=== PATIENT | male | born 1970 | race Two or more races ===

== ENCOUNTER 2024-10-24 18:51 | Emergency (ER) | payer MEDICAID, SELFPAY ==
[2024-10-24 18:52] VITALS: BMI 34.8
[2024-10-24 19:31] VITALS: BP 141/91; PULSE 79; RESP 20; TEMP 36.7; O2SAT 97
--- NOTE | 2024-10-24 20:05 | XR_ITS ---
Examination: Hand, right 3 views Technique: Hand AP, oblique, lateral 3 views Date and time of exam: October 24, 20242013 hours INDICATIONS: Injured hand today, hand pain. FINDINGS: Acute comminuted angulated mildly displaced fracture distal fifth metacarpal No dislocation IMPRESSION: Acute fracture distal fifth metacarpal
--- NOTE | 2024-10-24 20:06 | PD.EDHAND ---
Upper Extremity Injury RME/HPI General Chief Complaint: Hand/Wrist Problems Stated Complaint: POSS FX R) HAND Time Seen by Provider: 10/24/24 19:06 Arrival date/time: 10/24/24 18:51 RME / HPI RME / HPI narrative: [id number] 54-year-old male with no significant past medical history presents to the ED with a complaint of right hand pain, swelling and bruising secondary to an injury he sustained on Friday. Patient states that he was working on a piece of yard equipment when he pulled the string to get it started and accidentally hit the handle of another piece of yard equipment with his right hand. He has some mild numbness to the right small finger. He denies any previous injury. Related Data Previous Rx's ?Medication ?Instructions ?Recorded ibuprofen 600 mg tablet 600 mg PO TID PRN pain #30 tabs 05/03/17 prednisone 20 mg tablet 60 mg (3 x 20 mg) PO QDAY sciatca 05/03/17 #15 tabs diphenhydramine HCl 25 mg tablet 25 mg PO TID PRN allergic reaction 05/20/19 (Benadryl Allergy) #30 tabs omeprazole 20 mg capsule,delayed 20 mg PO QDAY #20 caps 09/11/22 release ibuprofen 600 mg tablet 600 mg PO Q8H PRN pain 7 days #21 10/24/24 tabs Allergies Allergy/AdvReac Type Severity Reaction Status Date / Time Penicillins Allergy Severe HIVES Verified 10/24/24 18:54 morphine AdvReac Intermediate VEINS Verified 10/24/24 18:54 TURNED RED Review of Systems Review of Systems Systems Reviewed: All systems reviewed, normal except as documented Past Medical History Past Medical History CARDIAC: Negative Congestive Heart Failure RESPIRATORY: Negative Chronic Obstructive Pulmonary Disease (COPD) GENITOURINARY: Negative Renal Disease ENDOCRINE: Negative Diabetes Mellitus Type 1 or Diabetes Mellitus Type 2 Social History SMOKING STATUS: Current every day smoker ED Exam Narrative Physical exam: A&O, afebrile and non-toxic appearing 54 year old male , mild acute pain distress due to right hand pain and swelling. Lungs are clear, RRR, Abdomen is non-distended. Right hand exam reveals swelling to the entire metacarpals area with tenderness and decreased ROM to the distal 5th metacarpal and MCP joint area. No tenderness or decreased ROM to the other 4 digits. No tenderness to the proximal, middle, or distal phalynx. Eccymosis noted to the right palm in the areas of the distal 3rd, 4th, 5th distal metacarpals. No pain with ROM or tenderness to palpation of the right wrist. Moves all other extremities well. Course Course Course Narrative: Patient was given Ibuprofen 800mg PO, which he states helped with his pain. XR Right Hand reveals: Acute comminuted angulated mildly displaced fracture distal fifth metacarpal. No dislocation. Patient was placed in an ulnar gutter splint in position of function as well as an arm sling. Quality Measures none Orders Category Date Time Status Splint / Immobilizer STAT Care 10/24/24 21:27 Active XR hand comp RT min 3V Stat Exams 10/24/24 20:05 Completed Ibuprofen Tab [Motrin Tab] Med 10/24/24 20:05 Discontinued 800 mg PO X1 ONE Vital Signs Vital signs: Vital Signs Temperature 98.1 F 10/24/24 19:31 Pulse Rate 79 10/24/24 19:31 Respiratory Rate 20 10/24/24 19:31 Blood Pressure 141/91 H 10/24/24 19:31 Pulse Oximetry (%) 97 10/24/24 19:31 Oxygen Delivery Method Room Air 10/24/24 19:31 Extremity Injury MDM Narrative MDM Narrative:: Symptoms, exam and diagnostic studies are consistent with: Right Distal 5th Metacarpal (Boxer's) Fracture. Patient was discharged home in stable condition. There is no orthopedic coverage today therefore patient was advised to follow-up at either [facility] or [facility] for follow-up and referral to an clinical reimbursement specialist. Patient/family advised to follow-up with their PCP in 24-48 hours. Encouraged to return to the ED for any new or worsening symptoms. Patient data External records reviewed:: None Clinical information provided by:: patient Social determinants that could affect healthcare access:: none Patient has the following chronic illnesses:: N/A How is presenting disease/condition affected by chronic disease/condition?: no chronic disease Evaluation data The following diagnostics were reviewed and interpreted by me:: radiology exam(s) Lab and/or radiology exams considered but not ordered:: N/A Interpretation Summary: As noted above Medications / Prescriptions Medications or Prescriptions considered but not ordered:: N/A Medication administrations:: Medication Administration History Discontinued Medications Ibuprofen (Ibuprofen Tab 400 Mg Tablet) 800 mg PO X1 ONE Stop: 10/24/24 20:06 Last Admin: 10/24/24 20:36 Dose: 800 mg Documented By: EF As noted above Consultations Consultation(s) initiated? (list below): No Diagnosis Upper Extremity Injury Differential Diagnosis: sprain and strain of wrist, fracture of wrist, Colles' fracture, fracture of hand and other (Fifth distal metacarpal/boxer's fracture) Most likely diagnosis given after review of the tests above:: Fifth distal metacarpal/boxer's fracture Admission Indicated Admission indicated?: not indicated Explain why admission is indicated or not indicated:: Patient is stable for discharge Admission Request Was there a request for admission?: No Admission Attestation Admission request attestation: N/A Disposition Plan Disposition Plan: Discharge Discharge Attestation Discharge Attestation: The patient and all family members were given an opportunity to ask questions and understood the discharge instructions. Discharge instructions specifically effects, indications for sooner follow up or return to the emergency department, and the expected course of current diagnosis. Patient condition: Stable Discharge Plan Plan Patient Disposition: HOME (Self Care) Discharge Disposition comment: Stable and improved Prescriptions/Referrals Prescriptions/Med Rec: New ibuprofen 600 mg tablet 600 mg PO Q8H PRN (Reason: pain) 7 Days Qty: 21 0RF No Action prednisone 20 mg tablet 60 mg PO QDAY Qty: 15 0RF Rx Instructions: administer with food or milk ibuprofen 600 mg tablet 600 mg PO TID PRN (Reason: pain) Qty: 30 0RF diphenhydramine HCl [Benadryl Allergy] 25 mg tablet 25 mg PO TID PRN (Reason: allergic reaction) Qty: 30 0RF omeprazole 20 mg capsule,delayed release(DR/EC) 20 mg PO QDAY Qty: 20 0RF Referrals: No Primary/Family,Physician [Primary Care Provider] - In 1 week Problem List Clinical Impression: Closed boxer's fracture Patient/Caregiver Discharge Instructions Education Materials: ED Closed Hand Fracture (Adult) Additional Instructions: Keep the splint in place. Ice and elevate to help eliminate pain and swelling. Use the ibuprofen as needed for pain control. Do not take more than the recommended dose. Unfortunately we do not have an orthopedic surgeon corrosion technician today. Establish care at either [facility] or [facility] for referral to an clinical reimbursement specialist. You may need surgery on this fracture. Follow-up with your primary care physician in 24 to 48 hours. Return to the ED for any new or worsening symptoms. Print Language: Citizen Of [place] Stand Alone Forms: Maci Award Info., Patient Portal Info Letter PA/LEAK GANG SUPERVISOR Supervising Physician PA/LEAK GANG SUPERVISOR Supervising Physician: Dr Briones
[2024-10-24] MEDS: IBUPROFEN TAB 400 MG TABLET 800 MG PO (20:36)
[2024-10-24 22:28] VITALS: BP 134/86; PULSE 69; RESP 18; TEMP 36.5; O2SAT 98
== END 2024-10-24 22:29 | disposition home or self-care (01) ==
PROVIDERS: Emergency Provider Emergency Medicine
DX: S62.366A Nondisplaced fracture of neck of fifth metacarpal bone, right hand, initial encounter for closed fracture (principal); W22.8XXA Striking against or struck by other objects, initial encounter; Y93.89 Activity, other specified
CPT/HCPCS: 29125; 73130; 99283; A9270

== ENCOUNTER 2025-01-22 19:38 | Emergency (ER) | payer MEDICAID, SELFPAY ==
[2025-01-22 19:38] VITALS: BMI 34.8
--- NOTE | 2025-01-22 20:06 | XR_ITS ---
Examination: CT abdomen and pelvis without contrast. Coronal 3-D reconstructions. Sagittal 2-D reconstructions. Date and time of exam: .2032 hours, comparison April 22, 2024 INDICATIONS: Left lower abdominal pain and hematuria today CTDI: vol (mGy): 10.3 DLP: (mGycm): 666 Technique: Axial images of the abdomen have been obtained, 3 mm slice thickness Intravenous contrast material has not been administered. Low dose protocols were performed. One or more of the following dose reduction techniques were used; automated exposure control, adjustment of the mA and/or KV according to patient size, use of iterative reconstruction technique. Findings: Multiple liver cysts Cholelithiasis, gallbladder wall does not appear thickened No pancreatic or adrenal mass 2 mm left renal calculus 3 mm 1 mm left renal calculus Mild left hydronephrosis secondary to 5 mm distal left ureteral calculus No bowel obstruction No pericecal inflammatory change Colonic diverticulosis, axial image 199 suspicious for mild acute diverticulitis, no abscess Urinary bladder wall shows significant thickening IMPRESSION: Left renal calculi Mild left hydronephrosis secondary to 5 mm distal left ureteral calculus Mild left diverticulitis, no diverticular abscess
[2025-01-22 20:07] VITALS: BP 153/89; PULSE 60; RESP 20; TEMP 36.4; O2SAT 96
--- NOTE | 2025-01-22 20:07 | EDNOTE_ITS ---
ED Male Genitalurinary RME/HPI General Chief complaint: Urogenital-Male Stated complaint: URINATING BLOOD Time Seen by Provider: 01/22/25 19:43 Arrival date/time: 01/22/25 19:38 54-year-old male patient came in for evaluation regarding left flank pain. Onset of symptoms about 1 hour prior to ER visit, patient woke up with sudden onset of left flank pain radiating to the left lower abdomen associate with blood-tinged urine. Patient pain is described as sharp pain severity 10 out of 10. No vomiting noted denies any other complaints no fever noted. Related Data Previous Rx's ?Medication ?Instructions ?Recorded ibuprofen 600 mg tablet 600 mg PO TID PRN pain #30 t abs 05/03/17 prednisone 20 mg tablet 60 mg (3 x 20 mg) PO QDAY sc iatca 05/03/17 #15 tabs diphenhydramine HCl 25 mg tablet 25 mg PO TID PRN clara rgic reaction 05/20/19 (Benadryl Allergy) #30 tabs omeprazole 20 mg capsule,delayed 20 mg PO QDAY #20 cap s 09/11/22 release ibuprofen 800 mg tablet 800 mg PO Q8H PRN pain #30 t abs 01/22/25 ondansetron HCl 4 mg tablet 4 mg PO Q8H PRN nausea and 01/22/25 vomiting 5 days #20 tabs tamsulosin 0.4 mg capsule (Flomax) 0.4 mg PO QDAY #10 caps 01/22/25 acetaminophen 300 mg-codeine 30 mg 2 tab PO Q8H PRN pa in #20 tabs 01/23/25 tablet ketorolac 10 mg tablet 10 mg PO Q8H PRN pain 5 days #10 01/23/25 tabs ondansetron 4 mg disintegrating 4 mg PO TID PRN nausea and 01/23/25 tablet vomiting 30 days #10 tabs tamsulosin 0.4 mg capsule (Flomax) 0.4 mg PO QDAY 7 da ys #7 caps 01/23/25 Allergies Allergy/AdvReac Type Severity Reaction Status Date / Time Penicillins Allergy Severe HIVES Verified 10/24/24 18:54 morphine AdvReac Intermediate VEINS Verified 10/24/24 18:54 TURNED RED Review of Systems Review of Systems Narrative Review of Systems: Review of system reviewed and within normal limits except mentioned in HPI ED Exam Narrative Physical exam: VITAL SIGNS: Reviewed. GENERAL APPEARANCE: Alert and interactive, follows commands, no acute distress, HEAD AND FACE: Non-traumatic. ENT: PERRL, pink conjunctivitis, eyelid no trauma, Mucous membrane moist. NECK: Supple, nontender, no nuchal rigidity. CHEST: No tenderness, no crepitus, no paradoxical movement, no retractions. LUNGS: Clear, well ventilated, symmetric, no rales, no wheezing, no ronchi, no stridor, good breath sounds bilaterally. HEART: Regular rate, regular rhythm, no murmur, no gallops. ABDOMEN: Soft, positive bowel sounds, nondistended, no guarding, left lower quadrant tenderness, no rebound, no masses, RECTAL: Deferred. GENITAL: Deferred. NEUROLOGICAL: Gross motor function intact sensory function intact, Appropriate for age. MUSCULOSKELETAL: low back nontender, full range of motion. EXTREMITIES: Nontender, full range of motion. SKIN: Color pink, dry, no rash, no lacerations, no abrasions, no contusions. LYMPHATICS: Deferred. Course Quality Measures none Orders Category Date Time Status IV [Insert IV] NOW Care 01/22/25 20:16 Completed Miscellaneous Nursing Order NOW Care 01/23/25 00:[address] abdomen pelvis wo con Stat Exams 01/22/25 20:06 Completed CBC [CBC] Stat Lab 01/22/25 20:15 Completed CMP [Comprehensive Metabolic Panel] Stat Lab 01/22/25 20:15 Completed UA, C/S IF [Urinalysis, C/S if Indicated] Stat Lab 01/22/25 21:34 Completed Urine Culture Stat Lab 01/22/25 21:34 Completed HYDROmorphone INJ [Dilaudid Inj] Med 01/22/25 23:09 Discontinued 1 mg IVP X1 ONE Ketorolac Inj [Toradol Inj] Med 01/22/25 20:06 Discontinued 30 mg IVP X1 ONE Ondansetron Inj [Zofran Inj] Med 01/22/25 20:06 Discontinued 4 mg IVP X1 ONE Ringers Lactated 1000 ml [Lactated Ringers] 1,000 ml Med 01/22/25 20:06 Discontinued IV 999 mls/hr Ringers Lactated 1000 ml [Lactated Ringers] 1,000 ml Med 01/22/25 23:09 Discontinued IV 999 mls/hr Tamsulosin HCl [Flomax] Med 01/23/25 00:21 Discontinued 0.4 mg PO X1 ONE cefTRIAXone/D5w 1gm IV premix [Rocephin/D5w 1gm IV Med 01/23/25 00:21 Discontinued premix] 1 gm in 50 ml IV X1 Vital Signs Vital signs: Vital Signs Temperature 97.6 F 01/22/25 20:07 Pulse Rate 60 01/22/25 20:07 Respiratory Rate 20 01/22/25 20:07 Blood Pressure 153/89 H 01/22/25 20:07 Pulse Oximetry (%) 96 01/22/25 20:07 Oxygen Delivery Method Room Air 01/22/25 20:07 Urogenital - Male MDM Narrative MDM Narrative:: 01/22/25 19:38 54-year-old male patient came in for evaluation regarding left flank pain. Onset of symptoms about 1 hour prior to ER visit, patient woke up with sudden onset of left flank pain radiating to the left lower abdomen associate with blood-tinged urine. Patient pain is described as sharp pain severity 10 out of 10. No vomiting noted denies any other complaints no fever noted. Care transferred to Dr. Briones for final disposition Patient data External records reviewed:: None Clinical information provided by:: family Social determinants that could affect healthcare access:: none Patient has the following chronic illnesses:: None How is presenting disease/condition affected by chronic disease/condition?: no chronic disease Evaluation data The following diagnostics were reviewed and interpreted by me:: lab results and radiology exam(s) Lab and/or radiology exams considered but not ordered:: none Interpretation Summary: see mdm Medications / Prescriptions Medications or Prescriptions considered but not ordered:: None Medication administrations:: Medication Administration History Discontinued Medications Hydromorphone HCl (Hydromorphone Inj 2 Mg/Ml Vial) 1 mg IVP X1 ONE Stop: 01/22/25 23:10 Last Admin: 01/22/25 23:29 Dose: 1 mg Documented By: CVL Lactated Ringer's (Lactated Ringers) 1,000 mls @ 999 mls/hr IV .Q1H1M ONE Stop: 01/22/25 21:06 Last Infusion: 01/22/25 21:11 Dose: Infused Documented By: Admin: 01/22/25 20:16 Dose: 999 mls/hr Documented By: ALO Lactated Ringer's (Lactated Ringers) 1,000 mls @ 999 mls/hr IV .Q1H1M ONE Stop: 01/23/25 00:09 Last Infusion: 01/23/25 00:17 Dose: Infused Documented By: Admin: 01/22/25 23:22 Dose: 999 mls/hr Documented By: CVL Ceftriaxone Sodium/Dextrose (Rocephin/D5w 1gm Iv Premix) 1 gm in 50 mls @ 100 mls/hr IV X1 ONE Stop: 01/23/25 00:50 Last Infusion: 01/23/25 01:01 PDT Dose: Infused Documented By: Admin: 01/23/25 00:37 Dose: 100 mls/hr Documented By: CVL Ketorolac Tromethamine (Ketorolac Inj 30 Mg/Ml Vial) 30 mg IVP X1 ONE Stop: 01/22/25 20:07 Last Admin: 01/22/25 20:15 Dose: 30 mg Documented By: ALO Ondansetron HCl (Ondansetron Inj 2 Mg/Ml Inj 2 Ml) 4 mg IVP X1 ONE; Protocol Stop: 01/22/25 20:07 Last Admin: 01/22/25 20:16 Dose: 4 mg Documented By: ALO Tamsulosin HCl (Tamsulosin Hcl 0.4 Mg Capsule) 0.4 mg PO X1 ONE Stop: 01/23/25 00:22 Last Admin: 01/23/25 00:36 Dose: 0.4 mg Documented By: CVL Flomax Zofran Toradol ceftriaxone IV fluids Consultations Consultation(s) initiated? (list below): No Diagnosis Urogenital Male Differential Diagnosis: urinary tract infection and urethritis Most likely diagnosis given after review of the tests above:: Renal colic ureterolithiasis Admission Indicated Admission indicated?: not indicated Admission Request Was there a request for admission?: No Disposition Plan Disposition Plan: other (specify) (Pending. Lab results and final disposition) Discharge Plan Plan Patient Disposition: HOME (Self Care) Discharge Disposition comment: stable Prescriptions/Referrals Prescriptions/Med Rec: New tamsulosin [Flomax] 0.4 mg capsule 0.4 mg PO QDAY Qty: 10 0RF ibuprofen 800 mg tablet 800 mg PO Q8H PRN (Reason: pain) Qty: 30 0RF ondansetron HCl 4 mg tablet 4 mg PO Q8H PRN (Reason: nausea and vomiting) 5 Days Qty: 20 0RF acetaminophen-codeine 300-30 mg tablet 2 tab PO Q8H MDD 6 PRN (Reason: pain) Qty: 20 0RF ketorolac 10 mg tablet 10 mg PO Q8H PRN (Reason: pain) 5 Days Qty: 10 0RF tamsulosin [Flomax] 0.4 mg capsule 0.4 mg PO QDAY 7 Days Qty: 7 0RF ondansetron 4 mg tablet,disintegrating 4 mg PO TID PRN (Reason: nausea and vomiting) 30 Days Qty: 10 0RF No Action prednisone 20 mg tablet 60 mg PO QDAY Qty: 15 0RF Rx Instructions: administer with food or milk ibuprofen 600 mg tablet 600 mg PO TID PRN (Reason: pain) Qty: 30 0RF diphenhydramine HCl [Benadryl Allergy] 25 mg tablet 25 mg PO TID PRN (Reason: allergic reaction) Qty: 30 0RF omeprazole 20 mg capsule,delayed release(DR/EC) 20 mg PO QDAY Qty: 20 0RF Referrals: Temporary Provider,ED [Physician, Emergency Medicine] - In 1 week Problem List Clinical Impression: Kidney stone on left side Patient/Caregiver Discharge Instructions Discharge Activity: activity as tolerated Education Materials: ED Kidney Stone w/ Colic Additional Instructions: Discharge Instructions from Dr. Briones: --Your symptoms are due to a 5 mm right kidney stone.? It is outside the kidney.? It is trying to pass into your bladder.? --Increase oral fluid to flush your kidneys.? Maintain clear urine. if it's dark or yellow then increase oral fluid.? If you don't do this, you won't pass it.? --Take Flomax to help decrease spasms to increase the chance of passing it.? --Take Zofran as needed for nausea or vomiting. --Take Ketorolac/Toradol for pain control.? And Tylenol with Codeine.? If you are in severe pain, you won't pass it.?? --Strain your urine so you can catch the stone when you pass it.? --See a private doctor on 01/24/2025 for recheck. Take the stone with you for analysis because certain stones can be prevented.? If you didn't pass it, ask for referral to see urologist.? Who will take the stone out for you. --Seek immediate medical care with fever over 100.4, persistent vomiting despite Zofran, intolerable pain, or with any concerns.?? Unfortunately, this hospital emergency room has no urology coverage. Instrucciones de keon del Dr. Briones: ?Kimi s?ntomas se deben a un c?lculo renal derecho de 5 mm. Se encuentra fuera del ri??n e intenta pasar a la vejiga. ?Aumente la ingesta de l?quidos para ayudar a limpiar los ri?ones. Mantenga la orina [place]. Si est? oscura o amarilla, aumente la ingesta de l?quidos. De lo contrario, no podr? expulsarlo. ?[place] Flomax para disminuir los espasmos y aumentar las probabilidades de expulsarlo. ?[place] Zofran seg?n sea necesario para las n?useas o los v?mitos. ?[place] Ketorolaco/Toradol para controlar el dolor y Tylenol con Code?na. Si siente dolor intenso, no podr? expulsarlo. ?Cuela la orina para poder recoger el c?lculo al expulsarlo. ?Consulte a un m?dico particular el 3 2024 para lida revisi?n. Lleve la alexey para que la analicen, ya que algunas se pueden prevenir. Si no la expulsa, pida que le deriven a un ur?logo, quien se la extraer?. Busque atenci?n m?dica inmediata si tiene fiebre superior a 38 ?C, v?mitos persistentes a pesar de maria g Zofran, dolor intenso o cualquier otra preocupaci?n. Lamentablemente, el [facility] no cuenta con servi input output clerk de urolog?a. Print Language: [place] Stand Alone Forms: Maci Award Info., Patient Portal Info Letter
[2025-01-22] MEDS: KETOROLAC INJ 30 MG/ML VIAL IVP (20:15)
[2025-01-22] MEDS: RINGERS LACTATED 1000 ML 1,000 ML 999 ML IV ×2 (20:16→23:22)
[2025-01-22] MEDS: ONDANSETRON INJ 2 MG/ML INJ 2 ML 4 MG IVP (20:16)
[2025-01-22 21:02] LABS: Basophils # (Auto) 0.1 Thou/mm3 (0.0-0.2); Basophils % (Auto) 1 % (0-2.5); Eosinophils # (Auto) 0.3 Thou/mm3 (0.0-0.5); Eosinophils % (Auto) 3 % (0-10); Hematocrit 41.7 % (41.0-53.0); Hemoglobin 14.2 g/dL (13.5-16.0); Immature Granulocytes Auto 0.02 Thou/mm3 (0.00-0.00); Lymphocytes # (Auto) 3.6 Thou/mm3 (1.0-4.8); Lymphocytes % (Auto) 41 % (10-50); Mean Corpuscular HGB Conc 34.1 g/dl (31.0-37.0); Mean Corpuscular Hemoglobin 30.0 pg (25.0-35.0); Mean Corpuscular Volume 88 fL (80-100); Monocytes # (Auto) 0.9 Thou/mm3 (0.0-0.8); Monocytes % (Auto) 11 % (0-12); Neutrophils # (Auto) 3.8 Thou/mm3 (1.8-7.7); Neutrophils % (Auto) 44 % (37-80); Nucleated Red Blood Cell # 0.00 Thou/mm3 (0.00-0.00); Nucleated Red Blood Cell % 0 /100 WBC (0); Platelet Count 202 Thou/mm3 (140-440); RDW Standard Deviation 40.9 fL (35.1-43.9); Red Blood Count 4.74 Miln/mm3 (4.50-5.90); White Blood Count 8.6 Thou/mm3 (3.8-10.6)
[2025-01-22 21:29] LABS: Alanine Aminotransferase 182 U/L (10-49); Albumin, Serum 4.3 gm/dL (3.5-5.0); Albumin/Globulin Ratio 1.2 (1.2-2.2); Alkaline Phosphatase 123 U/L (46-116); Anion Gap 10 (7-16); Aspartate Amino Transferase 85 U/L (0-34); BUN/Creatinine Ratio 11 Ratio (12-20); Bilirubin,Total 0.6 mg/dL (0.3-1.2); Blood Urea Nitrogen 11 mg/dL (9-23); Calcium 9.3 mg/dL (8.3-10.6); Calcium (Corrected) 9.3 mg/dL (8.5-10.1); Carbon Dioxide 25.2 mMol/L (20.0-31.0); Chloride 106 mMol/L (98-107); Creatinine (Component) 1.0 mg/dL (0.6-1.3); Estimated Creatinine Clearance 105.6 mL/min (>60); Globulin 3.5 gm/dL (2.3-3.5); Glucose 104 mg/dL (74-106); Osmolality,Calculated 280 (275-295); Potassium 3.6 mMol/L (3.4-5.1); Sodium 141 mMol/L (136-145); Total Protein 7.8 gm/dL (5.7-8.2); eGFR > 60 See Note
[2025-01-22 21:46] LABS: Collection Type, Urine Clean Catch; Squamous Epithelial Cell,Urine 0 /hpf (0-5)
[2025-01-22 21:54] LABS: Bacteria,Urine Rare; Bilirubin,Urine Negative (Negative); Blood,Urine 3+ (Negative); Budding Yeast,Urine Present; Clarity,Urine Turbid (Clear/Hazy); Glucose, Urine Negative (Negative); Ketones,Urine Negative (Negative); Leukocyte Esterase,Urine Negative (Negative); Nitrite,Urine Negative (Negative); PH,Urine 6.5 (5.0-7.0); Protein,Urine Trace (Neg - Trace); RBC,Urine 1661 /hpf (0-3); Specific Gravity,Urine 1.019 (1.001-1.035); Urobilinogen,Urine 2.0 mg/dL (0.0-1.0); WBC,Urine 11 /hpf (0-5)
[2025-01-22 22:13] LABS: Color,Urine Lt-Orange (Lt Yel-Yel); Culture Indicated,Urine Yes
[2025-01-22 23:29] VITALS: BP 124/67; PULSE 69; RESP 14; O2SAT 96
[2025-01-22] MEDS: HYDROmorphone INJ 2 MG/ML VIAL 1 MG IVP (23:29)
--- NOTE | 2025-01-23 00:21 | PD.EDADDENDU ---
Emergency Room Addendum Addendum Narrative: I took over the care from previous shift provider, Andrews Paniagua NP at 11 PM on 01/22/2025. See previous notes for complete H & P and ED course. I reviewed all diagnostic test results. My review of the Abdomen/Pelvis CT report is Left renal calculi. Mild left hydronephrosis secondary to 5 mm distal left ureteral calculus. Diagnoses include: Kidney Stone on Left Side He felt much better. Recommended outpatient treatment. Based on my best medical judgment, made decision no further evaluation or treatment indicated at this time. Patient understands and agrees to the discharge instructions customized and printed, see below. Discharge Instructions from Dr. Briones: --Your symptoms are due to a 5 mm right kidney stone. It is outside the kidney. It is trying to pass into your bladder. --Increase oral fluid to flush your kidneys. Maintain clear urine. if it's dark or yellow then increase oral fluid. If you don't do this, you won't pass it. --Take Flomax to help decrease spasms to increase the chance of passing it. --Take Zofran as needed for nausea or vomiting. --Take Ketorolac/Toradol for pain control. And Tylenol with Codeine. If you are in severe pain, you won't pass it. --Strain your urine so you can catch the stone when you pass it. --See a private doctor on 01/24/2025 for recheck. Take the stone with you for analysis because certain stones can be prevented. If you didn't pass it, ask for referral to see urologist. Who will take the stone out for you. --Seek immediate medical care with fever over 100.4, persistent vomiting despite Zofran, intolerable pain, or with any concerns. Unfortunately, this hospital emergency room has no urology coverage. Lamine Briones MD
[2025-01-23] MEDS: TAMSULOSIN HCL 0.4 MG CAPSULE PO (00:36)
[2025-01-23] MEDS: cefTRIAXone/D5w 1gm IV premix 1 GM/50 ML BAG IV (00:37)
[2025-01-23 01:02] VITALS: PULSE 75; RESP 16; O2SAT 96
== END 2025-01-23 01:02 | disposition home or self-care (01) ==
PROVIDERS: Nurse Practitioner Family; Emergency Provider Emergency Medicine
DX: N20.0 Calculus of kidney (principal); R31.0 Gross hematuria
CPT/HCPCS: 36415; 74176; 80053; 81001; 85025; 87086; 96361; 96365; 96375; 99283; J0696; J1171; J1885; J2405; J7120; A9270